=== PATIENT | male | born 1955 | race Caucasian/White ===

== ENCOUNTER → 2016-08-14 | Outpatient (CLI) | payer BC ==
[2016-08-14 07:39] LABS: CH 29.4; HCT 48.5 % (39.0-53.0); HDW 2.55; HGB 15.4 gm/dL (13.0-17.5); MCH 29.4 pg (25.0-35.0); MCHC 31.8 g/dL (31.0-37.0); MCV 92.2 fL (80.0-100.0); Mean Platelet Volume 7.8; RBC 5.26 m/uL (4.30-5.90); RDW 13.6 % (11.5-15.5); WBC 14.4 k/uL (3.8-10.6)
[2016-08-14 08:01] LABS: ALT 29 U/L (21-72); AST 22 U/L (17-59); Alkaline Phosphatase 89 U/L (38-126); Anion Gap 16 mmol/L; Blood Urea Nitrogen 25 mg/dL (9-20); Calcium 9.8 mg/dL (8.4-10.2); Carbon Dioxide 21 mmol/L (22-30); Chloride 105 mmol/L (98-107); Cholesterol 147 mg/dL (<200); Glucose 177 mg/dL (74-99); HDL Cholesterol 42 mg/dL (40-60); Non-African American GFR(MDRD) >60 (>60 ml/min/1.73 sqM); Potassium 5.1 mmol/L (3.5-5.1); Sodium 142 mmol/L (137-145); Total Bilirubin 0.6 mg/dL (0.2-1.3); Total Protein 7.8 g/dL (6.3-8.2); Triglycerides 234 mg/dL (<150)
[2016-08-14 08:31] LABS: Prostate Specific Antigen 0.52 ng/mL (0.00-4.00)
[2016-08-14 21:04] LABS: Hemoglobin A1C 6.7 % (4.2-6.1)
== END | disposition home or self-care (01) ==
LOC: LABWHC1 07:22
PROVIDERS: ATTEND Family Medicine
DX: Z00.00 Encounter for general adult medical examination without abnormal findings (principal); E11.9 Type 2 diabetes mellitus without complications; Z12.5 Encounter for screening for malignant neoplasm of prostate
CPT/HCPCS: 36415; 80053; 80061; 83036; 84153; 84439; 84443; 85027

== ENCOUNTER → 2018-09-15 | Outpatient (CLI) | payer BC ==
[2018-09-15 07:41] LABS: Basophils # (A) 0.1 k/uL (0-0.2); Basophils % (A) 1 %; Eosinophils # (A) 0.2 k/uL (0-0.7); Eosinophils % (A) 2 %; HCT 45.8 % (39.0-53.0); HGB 15.2 gm/dL (13.0-17.5); Lymphocytes # (A) 3.5 k/uL (1.0-4.8); Lymphocytes % (A) 37 %; MCH 29.4 pg (25.0-35.0); MCHC 33.1 g/dL (31.0-37.0); MCV 88.9 fL (80.0-100.0); Monocytes # (A) 0.5 k/uL (0-1.0); Monocytes % (A) 6 %; Neutrophils # (A) 4.9 k/uL (1.3-7.7); Neutrophils % (A) 52 %; Platelet Count 228 k/uL (150-450); RBC 5.15 m/uL (4.30-5.90); RDW 13.4 % (11.5-15.5); WBC 9.4 k/uL (3.8-10.6)
[2018-09-15 12:08] LABS: Albumin 4.6 g/dL (3.80-4.90); Albumin/Globulin Ratio 2.42 (1.60-3.17); Anion Gap 12.6 mmol/L (4.00-12.00); Calcium 9.4 mg/dL (8.7-10.3); Carbon Dioxide 23.4 mmol/L (21.6-31.8); Globulin 1.9 g/dL (1.6-3.3); LDL Cholesterol,Calculated 47.6 mg/dL (0.0-131.0); Potassium 4.9 mmol/L (3.5-5.5); Total Bilirubin 0.3 mg/dL (0.2-1.2); Total Protein 6.5 g/dL (6.2-8.2); VLDL Calculation 68.4 mg/dL (5.00-40.00)
[2018-09-15 12:15] LABS: T4, Free (Free Thyroxine) 1.2 ng/dL (0.80-1.80)
[2018-09-15 15:26] LABS: Hemoglobin A1C 7.9 % (4.0-6.0)
== END | disposition home or self-care (01) ==
LOC: LABWHC1 07:06
PROVIDERS: ATTEND Family Medicine
DX: Z00.00 Encounter for general adult medical examination without abnormal findings (principal); E11.9 Type 2 diabetes mellitus without complications; Z12.5 Encounter for screening for malignant neoplasm of prostate
CPT/HCPCS: 84439; 80061; 80053; 84443; 85025; 83036; 36415; G0103

== ENCOUNTER → 2019-02-24 | Outpatient (CLI) | payer BC ==
[2019-02-24 08:25] LABS: Basophils # (A) 0.1 k/uL (0-0.2); Basophils % (A) 1 %; Eosinophils # (A) 0.2 k/uL (0-0.7); Eosinophils % (A) 3 %; HCT 43.8 % (39.0-53.0); HGB 14.8 gm/dL (13.0-17.5); Lymphocytes # (A) 2.8 k/uL (1.0-4.8); Lymphocytes % (A) 35 %; MCH 29.7 pg (25.0-35.0); MCHC 33.8 g/dL (31.0-37.0); Mean Platelet Volume 6.9; Monocytes # (A) 0.4 k/uL (0-1.0); Monocytes % (A) 5 %; Neutrophils # (A) 4.3 k/uL (1.3-7.7); Neutrophils % (A) 54 %; Platelet Count 217 k/uL (150-450); RBC 4.97 m/uL (4.30-5.90); WBC 7.9 k/uL (3.8-10.6)
== END | disposition home or self-care (01) ==
LOC: LABPAT 08:08
PROVIDERS: ATTEND Surgery
DX: Z01.812 Encounter for preprocedural laboratory examination (principal); I65.22 Occlusion and stenosis of left carotid artery
CPT/HCPCS: 85025

== ENCOUNTER → 2019-02-24 | Outpatient (CLI) | payer BC ==
[2019-02-24 17:08] LABS: Albumin 4.4 g/dL (3.80-4.90); Albumin/Globulin Ratio 2.2 (1.60-3.17); Anion Gap 7.9 mmol/L (4.00-12.00); BUN/Creat Ratio 28.75 Ratio (12.00-20.00); Carbon Dioxide 24.1 mmol/L (21.6-31.8); Chol/HDL Ratio 5.72; LDL Cholesterol,Calculated 26.8 mg/dL (0.0-131.0); Potassium 4.6 mmol/L (3.5-5.5); Total Bilirubin 0.3 mg/dL (0.3-1.2); Total Protein 6.4 g/dL (6.2-8.2); VLDL Calculation 124.2 mg/dL (5.00-40.00)
[2019-02-24 21:03] LABS: Hemoglobin A1C 8.2 % (4.0-6.0)
== END | disposition home or self-care (01) ==
LOC: LABWHC1 08:10
PROVIDERS: ATTEND Family Medicine
DX: E78.5 Hyperlipidemia, unspecified (principal); E11.9 Type 2 diabetes mellitus without complications; I65.29 Occlusion and stenosis of unspecified carotid artery
CPT/HCPCS: 36415; 80053; 80061; 83036

== ENCOUNTER → 2019-02-28 | Outpatient (CLI) | payer BC ==
[2019-02-28 12:45] VITALS: BMI 32.5
== END | disposition home or self-care (01) ==
LOC: LABWHC1 17:00 → EDSTATUS 03-06 07:30
PROVIDERS: ATTEND Surgery
DX: I65.22 Occlusion and stenosis of left carotid artery (principal)
CPT/HCPCS: 86850; 86900; 86901

== ENCOUNTER → 2019-03-22 | Outpatient (CLI) | payer BC ==
[2019-03-22 17:31] LABS: African American GFR (CKD) >90 (>60 ml/min/1.73 sqM); Anion Gap 11 mmol/L; Blood Urea Nitrogen 28 mg/dL (9-20); Carbon Dioxide 22 mmol/L (22-30); Chloride 105 mmol/L (98-107); Potassium 4.5 mmol/L (3.5-5.1); Sodium 138 mmol/L (137-145)
[2019-03-22 17:34] LABS: Basophils # (A) 0.1 k/uL (0-0.2); Basophils % (A) 1 %; Eosinophils # (A) 0.2 k/uL (0-0.7); Eosinophils % (A) 2 %; HCT 42.2 % (39.0-53.0); HGB 14.4 gm/dL (13.0-17.5); Lymphocytes # (A) 3.6 k/uL (1.0-4.8); Lymphocytes % (A) 36 %; MCH 30.3 pg (25.0-35.0); MCHC 34.1 g/dL (31.0-37.0); MCV 88.8 fL (80.0-100.0); Monocytes # (A) 0.7 k/uL (0-1.0); Monocytes % (A) 7 %; Neutrophils # (A) 5.2 k/uL (1.3-7.7); Neutrophils % (A) 52 %; Platelet Count 236 k/uL (150-450); RBC 4.75 m/uL (4.30-5.90); RDW 12.8 % (11.5-15.5)
== END | disposition home or self-care (01) ==
LOC: LABPAT 16:13
PROVIDERS: ATTEND Surgery
DX: Z01.812 Encounter for preprocedural laboratory examination (principal); I65.22 Occlusion and stenosis of left carotid artery
CPT/HCPCS: 36415; 80051; 82565; 84520; 85025

== ENCOUNTER 2019-03-27 05:51 | Inpatient (IN) | payer BC ==
[2019-03-22 10:31] VITALS: BMI 32.1
[2019-03-27] MEDS ORDERED: SCOPOLAMINE 1.5MG/72HR PATCH TRANSDERM ONE (06:01)
[2019-03-27] MEDS ORDERED: HYDROmorphone 0.5 MG/0.5 ML SYRINGE IVP PRN (06:01)
[2019-03-27] MEDS ORDERED: MIDAZOLAM 2 MG/2 ML VIAL IV PRN (06:01)
[2019-03-27] MEDS ORDERED: DEXAMETHASONE SOD PHOSPHATE 10 MG/ML 1 ML VIAL IV ONE (06:01)
[2019-03-27] MEDS ORDERED: ONDANSETRON 4 MG/2 ML VIAL IVP ONE (06:01)
[2019-03-27] MEDS ORDERED: LIDOCAINE 1% 20 ML VIAL (10MG/ML) FOR IV START INTRADERMA PRN (06:01)
[2019-03-27 06:42] LABS: Glucose,Whole Blood 233 mg/dL (75-99)
[2019-03-27] MEDS: LACTATED RINGERS 1,000 ML IV SCH ×3 (06:51→21:19)
[2019-03-27] MEDS ORDERED: INSULIN ASPART (NovoLOG) 100 UNIT/ML VIAL SQ ONE (06:51)
[2019-03-27] MEDS ORDERED: MIDAZOLAM 2 MG/2 ML VIAL IV ONE (07:05)
[2019-03-27] MEDS ORDERED: NITROGLYCERIN-D5W PMX 50 MG/250 ML BOTTLE IV ONE (07:19)
[2019-03-27] MEDS ORDERED: PHENYLEPHRINE-0.9% NACL SYG 1 MG/10 ML SYRINGE ONE (07:19)
[2019-03-27] MEDS ORDERED: NEOSTIGMINE 1 MG/ML 10 ML VIAL ONE (07:19)
[2019-03-27] MEDS ORDERED: ROCURONIUM BROMIDE 10 MG/ML 10 ML VIAL IV ONE (07:19)
[2019-03-27] MEDS ORDERED: GLYCOPYRROLATE 0.2 MG/ML 2 ML VIAL ONE (07:19)
[2019-03-27] MEDS ORDERED: fentaNYL (PF) 50 MCG/ML 2 ML AMP ONE (07:19)
[2019-03-27] MEDS ORDERED: SUCCINYLCHOLINE CHLORIDE 100 MG/5 ML SYR IV ONE (07:19)
[2019-03-27] MEDS ORDERED: LIDOCAINE 1% INJ 10MG/ML (20 ML MDV) ONE (07:19)
[2019-03-27] MEDS ORDERED: HEPARIN SODIUM,PORCINE 10,000 UNIT/ML 1 ML VIAL ONE (07:19)
[2019-03-27] MEDS ORDERED: MIDAZOLAM 2 MG/2 ML VIAL ONE (07:19)
[2019-03-27] MEDS ORDERED: PROPOFOL 10 MG/ML 20 ML VIAL IV ONE (07:19)
[2019-03-27] MEDS ORDERED: LIDOCAINE 1% INJ 10MG/ML (20 ML MDV) SQ ONE (08:06)
[2019-03-27] MEDS ORDERED: TRIMETHOBENZAMIDE 100 MG/ML 2 ML VIAL IM PRN (09:29)
[2019-03-27] MEDS ORDERED: MORPHINE SULFATE 2 MG/ML SYRINGE IVP PRN (09:29)
[2019-03-27] MEDS ORDERED: BENZOCAINE/MENTHOL LOZENG 1 EACH LOZENGE MUCOUS MEM PRN (09:29)
[2019-03-27] MEDS ORDERED: HYDROcodone/APAP 5-325MG 1 EACH TAB PO PRN (09:29)
[2019-03-27] MEDS ORDERED: ACETAMINOPHEN TAB 325 MG TAB PO PRN (09:29)
[2019-03-27] MEDS ORDERED: MAG HYDROX/AL HYDROX/SIMETH 30 ML CUP PO PRN (09:29)
[2019-03-27] MEDS ORDERED: ALPRAZolam 0.5 MG TAB PO PRN (09:32)
[2019-03-27] MEDS ORDERED: LACTATED RINGERS 1,000 ML IV ONE ×2 (09:38→09:58)
[2019-03-27 11:20] LABS: Glucose,Whole Blood 211 mg/dL (75-99)
[2019-03-27 12:05] LABS: Glucose,Whole Blood 227 mg/dL (75-99)
[2019-03-27 12:51] LABS: Basophils % (A) 0 %; Eosinophils % (A) 0 %; HCT 41.2 % (39.0-53.0); Lymphocytes # (A) 1.1 k/uL (1.0-4.8); Lymphocytes % (A) 13 %; MCH 30.7 pg (25.0-35.0); MCV 90.2 fL (80.0-100.0); Mean Platelet Volume 5.9; Monocytes # (A) 0.2 k/uL (0-1.0); Monocytes % (A) 2 %; Neutrophils # (A) 6.7 k/uL (1.3-7.7); Neutrophils % (A) 84 %; Platelet Count 217 k/uL (150-450); RBC 4.56 m/uL (4.30-5.90); RDW 12.7 % (11.5-15.5)
--- NOTE | 2019-03-27 15:24 | P.CNPUL ---
History of Present Illness Consult date: 03/27/19 Requesting physician: Nathan Engel Reason for consult: other Chief complaint: Left carotid stenosis History of present illness: This is a 64-year-old white male patient past medical history of hypertension, hyperlipidemia, diabetes mellitus type II, osteoarthritis. Patient was seen for right-sided neck pain and tingling to the right jaw and his outpatient workup demonstrated severe stenosis of his left internal carotid artery. Patient underwent MRA which demonstrated greater than 90% stenosis of his left internal carotid artery and he was referred to vascular surgery for surgical inte rvention. On 03/27/2019 patient underwent left-sided endarterectomy with Dr. Engel. We are seeing him in the postoperative period in the intensive care unit, he is awake and alert, oriented 3, he is doing very well, hemodynamically stable, he is in sinus rhythm on the monitor, vital signs are stable, is currently on room air, with a pulse ox of 97%, he denies history of lung disease, does have history of smoking, was currently in remission, left-sided neck incision is clean dry and intact, covered with surgical dressing, trachea is midline, no evidence of hematoma, YESSENIA drain is with small amount of sanguinous output, no difficulty breathing, no chest pain, and we were consulted for criti shalonda care management. Review of Systems All systems: negative Constitutional: Denies chills, Denies fever Eyes: denies blurred vision, denies pain Ears, nose, mouth and throat: Denies headache, Denies sore throat Cardiovascular: Denies chest pain, Denies shortness of breath Respiratory: Denies cough Gastrointestinal: Denies abdominal pain, Denies diarrhea, Denies nausea, Denies vomiting Musculoskeletal: Denies myalgias Integumentary: Denies pruritus, Denies rash Neurological: Denies numbness, Denies weakness Psychiatric: Denies anxiety, Denies depression Endocrine: Denies fatigue, Denies weight change Past Medical History Past Medical History: Diabetes Mellitus, Hyperlipidemia, Hypertension, Osteoarthritis (OA) Additional Past Medical History / Comment(s): UPPER AND LOWER DENTURES. GLASSES. History of Any Multi-Drug Resistant Organisms: None Reported Past Surgical History: Orthopedic Surgery Additional Past Surgical History / Comment(s): COLONOSCOPY, left hip replacement, left hip revision. RT EYE SX FOR "CYST" Past Anesthesia/Blood Transfusion Reactions: No Reported Reaction Past Psychological History: Anxiety, Depression Smoking Status: Former smoker Past Alcohol Use History: None Reported Additional Past Alcohol Use History / Comment(s): quit smoking 02/15, smoked less than 1ppd Past Drug Use History: None Reported - Past Family History Mother Family Medical History: Cancer Medications and Allergies Home Medications Medication Instructions Recorded Confirmed Type Ramipril [Altace] 5 mg PO QAM 10/01/13 03/22/19 History Rosuvastatin [Crestor] 20 mg PO HS 10/01/13 03/22/19 History metFORMIN HCL 1,000 mg PO AC-BID 10/01/13 03/22/19 History Nebivolol HCl [Bystolic] 10 mg PO QAM 10/07/14 03/22/19 History Glimepiride [Amaryl] 4 mg PO DAILY 10/08/14 03/22/19 History DULoxetine HCL [Cymbalta] 60 mg PO W/SUPPER 09/01/15 03/22/19 History Ibuprofen [Motrin] 800 mg PO Q8HR PRN #20 tab 09/01/15 03/22/19 Rx ALPRAZolam [Xanax] 0.5 mg PO BID PRN 02/28/19 03/22/19 History Allergies Allergy/AdvReac Type Severity Reaction Status Date / Time No Known Allergies Allergy Verified 03/22/19 10:26 Physical Exam Vitals: Vital Signs Temp Pulse Pulse Pulse Resp BP BP 03/27/19 14:00 86 17 114/56 03/27/19 13:30 84 18 03/27/19 13:00 78 11 L 120/62 03/27/19 12:30 86 19 03/27/19 12:00 98.2 F 70 21 03/27/19 11:30 71 12 119/64 03/27/19 11:28 98.2 F 77 17 119/64 03/27/19 11:15 77 16 03/27/19 10:46 73 18 126/65 03/27/19 10:30 68 18 126/65 03/27/19 10:15 71 18 123/58 03/27/19 10:00 97.3 F L 74 16 121/58 03/27/19 06:26 97.5 F L 78 20 147/67 BP BP Pulse Ox 03/27/19 14:00 97 03/27/19 13:30 97 03/27/19 13:00 97 03/27/19 12:30 97 03/27/19 12:00 97 03/27/19 11:30 97 03/27/19 11:28 121/53 97 03/27/19 11:15 03/27/19 10:46 134/56 96 03/27/19 10:30 142/56 95 03/27/19 10:15 136/56 97 03/27/19 10:00 132/59 98 03/27/19 06:26 151/65 97 Intake and Output 03/27/19 03/27/19 03/27/19 06:59 14:59 22:59 Intake Total 300 2200 Output Total 735 Balance 300 1465 Intake: IV 300 2200 Lactated Ringers 1,000 ml 300 @ 100 mls/hr IV .Q10H [facility] Rx#:[id number] Output: Urine 720 Estimated Blood Loss 15 Other: Voiding Method Indwelling Catheter Weight 102.1 kg ABP, PAP, CO, CI - Last 8 Hours Arterial Blood Pressure 109/58 Arterial Blood Pressure 119/57 Arterial Blood Pressure 121/52 Arterial Blood Pressure 125/65 Arterial Blood Pressure 120/54 Arterial Blood Pressure 116/52 GENERAL EXAM: Alert, pleasant, 64-year-old white male, comfortable in no apparent distress. HEAD: Normocephalic/atraumatic. EYES: Normal reaction of pupils, equal size. Conjunctiva pink, sclera white. NOSE: Clear with pink turbinates. THROAT: No erythema or exudates. NECK: No masses, no JVD, no thyroid enlargement, no adenopathy. Left neck incision is clean dry and intact, covered with surgical dressing, trachea is midline, with no deviation, YESSENIA drain is compressed, and draining small amount of stimulus output CHEST: No chest wall deformity. Symmetrical expansion. LUNGS: Equal air entry with no crackles, wheeze, rhonchi or dullness. CVS: Regular rate and rhythm, normal S1 and S2, no gallops, no murmurs, no rubs ABDOMEN: Soft, nontender. No hepatosplenomegaly, normal bowel sounds, no guarding or rigidity. EXTREMITIES: No clubbing, no edema, no cyanosis, 2+ pulses and upper and lower extremities. MUSCULOSKELETAL: Muscle strength and tone normal. SPINE: No scoliosis or deformity SKIN: No rashes CENTRAL NERVOUS SYSTEM: Alert and oriented -3. No focal deficits, tone is normal in all 4 extremities. PSYCHIATRIC: Alert and oriented -3. Appropriate affect. Intact judgment and insight. Results - Laboratory Findings CBC and BMP: 03/27/19 12:25 Abnormal lab findings: Abnormal Labs 03/27/19 03/27/19 03/27/19 06:37 11:18 12:03 POC Glucose (mg/dL) 233 H 211 H 227 H - Diagnostic Findings Chest x-ray: report reviewed, image reviewed Assessment and Plan Plan: Assessment: #1. High-grade stenosis of the left internal carotid artery, is post left endarterectomy postoperative day 0. MRA showed 90% stenosis of the left internal carotid artery #2. Hypertension #3. Hyperlipidemia #4. Diabetes type II #5. Anxiety #6. Osteoarthritis #7. History of smoking, in remission Plan: Continue current medical treatment, hemodynamic patient is stable, doing very well in the postoperative period, no neurologic changes, neck incision's clean dry and intact, no difficulty breathing, no chest pain. Having some mild throat soreness, but no acute distress, continues on lactated Ringer's at a rate of 100 ML per hour, his home meds have been reordered by vascular surgery. Continue monitoring his blood sugars, vital signs and output. He will remain in the intensive care unit overnight. GI and DVT prophylaxis. I performed a history & physical examination of the patient and discussed their management with my nurse practitioner, Yazmin Morrell. I reviewed the nurse practitioner's note and agree with the documented findings and plan of care. Lung sounds are positive for clear breath sounds throughout the lung au. The findings and the impression was discussed with the patient. I attest to the documentation by the nurse practitioner. Time with Patient: Greater than 30
[2019-03-27] MEDS: metFORMIN 500 MG TAB PO SCH (17:02)
[2019-03-27] MEDS: HEPARIN SODIUM,PORCINE 5,000 UNIT/ML 1 ML VIAL SQ SCH (17:03)
[2019-03-27] MEDS ORDERED: DULoxetine HCL 60 MG CAPSULE.DR PO SCH (17:30)
[2019-03-27 20:23] LABS: Glucose,Whole Blood 265 mg/dL (75-99)
[2019-03-27] MEDS ORDERED: ATORVASTATIN 40 MG TAB PO SCH (21:00)
[2019-03-27] MEDS: INSULIN ASPART (NovoLOG) 100 UNIT/ML VIAL SQ SCH (21:18)
[2019-03-28] MEDS: HEPARIN SODIUM,PORCINE 5,000 UNIT/ML 1 ML VIAL SQ SCH ×2 (00:42→08:24)
[2019-03-28 04:42] LABS: HCT 37.3 % (39.0-53.0); HGB 12.6 gm/dL (13.0-17.5); MCH 29.9 pg (25.0-35.0); MCHC 33.9 g/dL (31.0-37.0); MCV 88.3 fL (80.0-100.0); Mean Platelet Volume 6.6; Platelet Count 212 k/uL (150-450); RBC 4.22 m/uL (4.30-5.90); RDW 12.8 % (11.5-15.5); WBC 12.9 k/uL (3.8-10.6)
[2019-03-28 06:45] LABS: Glucose,Whole Blood 192 mg/dL (75-99)
[2019-03-28] MEDS: LACTATED RINGERS 1,000 ML IV SCH ×2 (06:48→06:57)
[2019-03-28] MEDS: metFORMIN 500 MG TAB PO SCH (06:52)
[2019-03-28] MEDS: INSULIN ASPART (NovoLOG) 100 UNIT/ML VIAL SQ SCH (06:53)
--- NOTE | 2019-03-28 08:04 | P.DS ---
Providers Date of admission: 03/27/19 05:51 Attending physician: Nathan Engel DO Consults: 03/27/19 09:29 Consult Physician Routine Consulting Provider: Moshe Hunt Consult Reason/Comments: medical management Do you want consulting provider notified?: Yes 03/27/19 09:34 Consult Physician Routine Consulting Provider: Reese Hendrix Reason/Comments: icu care Do you want consulting provider notified?: Yes Primary care physician: Moshe Hunt [facility] Course: Patient seen and examined. Overall doing quite well after his left carotid endarterectomy on 03/27/2019. He denies any pain. He is neurologically intact. His Han catheter and art line have been removed. He has urinated since without issue. He tolerated his breakfast without concerned. His drain put out minimal serosanguineous fluid and was removed. Incision is clean, dry, intact without any evidence of hematoma. At this time is found to be in satisfactory condition for discharge home. He will be maintained on aspirin and statin and given a prescription for Plavix. Discharge instructions are given to the patient and he seemingly understands Plan - Discharge Summary Discharge Rx Participant: No New Discharge Prescriptions: New Clopidogrel [Plavix] 75 mg PO DAILY #30 tablet No Action Rosuvastatin [Crestor] 20 mg PO HS metFORMIN HCL 1,000 mg PO AC-BID Ramipril [Altace] 5 mg PO QAM Nebivolol HCl [Bystolic] 10 mg PO QAM Glimepiride [Amaryl] 4 mg PO DAILY DULoxetine HCL [Cymbalta] 60 mg PO W/SUPPER Ibuprofen [Motrin] 800 mg PO Q8HR PRN #20 tab PRN Reason: Pain ALPRAZolam [Xanax] 0.5 mg PO BID PRN PRN Reason: Anxiety Discharge Medication List Ramipril [Altace] 5 mg PO QAM 10/01/13 [History] Rosuvastatin [Crestor] 20 mg PO HS 10/01/13 [History] metFORMIN HCL 1,000 mg PO AC-BID 10/01/13 [History] Nebivolol HCl [Bystolic] 10 mg PO QAM 10/07/14 [History] Glimepiride [Amaryl] 4 mg PO DAILY 10/08/14 [History] DULoxetine HCL [Cymbalta] 60 mg PO W/SUPPER 09/01/15 [History] Ibuprofen [Motrin] 800 mg PO Q8HR PRN #20 tab 09/01/15 [Rx] ALPRAZolam [Xanax] 0.5 mg PO BID PRN 02/28/19 [History] Clopidogrel [Plavix] 75 mg PO DAILY #30 tablet 03/28/19 [Rx] Follow up Appointment(s)/Referral(s): Moshe Hunt DO [Primary Care Provider] - 1 Week Nathan Engel DO [STAFF PHYSICIAN] - 10 Days Activity/Diet/Wound Care/Special Instructions: May shower starting tomorrow. No soaking of the incision. Resume home medications. Resume home diet as tolerated. Resume regular activity. Discharge Disposition: HOME SELF-CARE
[2019-03-28 08:33] VITALS: TEMP 97.8
[2019-03-28] MEDS ORDERED: LISINOPRIL 20 MG TAB PO SCH (09:00)
[2019-03-28] MEDS ORDERED: CLOPIDOGREL 75 MG TAB PO SCH (09:00)
[2019-03-28] MEDS ORDERED: NEBIVOLOL 5 MG TAB PO SCH (09:00)
[2019-03-28] MEDS ORDERED: GLIMEPIRIDE 4 MG TAB PO SCH (09:00)
--- NOTE | 2019-03-28 09:33 | P.PN ---
Subjective Progress Note Date: 03/28/19 Principal diagnosis: Left carotid stenosis This is a 64-year-old white male patient past medical history of hypertension, hyperlipidemia, diabetes mellitus type II, osteoarthritis. Patient was seen for right-sided neck pain and tingling to the right jaw and his outpatient workup demonstrated severe stenosis of his left internal carotid artery. Patient underwent MRA which demonstrated greater than 90% stenosis of his left internal carotid artery and he was referred to vascular surgery for surgical intervention. On 03/27/2019 patient underwent left-sided endarterectomy with Dr. Engel. We are seeing him in the postoperative period in the intensive care unit, he is awake and alert, oriented 3, he is doing very well, hemodynamically stable, he is in sinus rhythm on the monitor, vital signs are stable, is currently on room air, with a pulse ox of 97%, he denies history of lung disease, does have history of smoking, was currently in remission, left- sided neck incision is clean dry and intact, covered with surgical dressing, trachea is midline, no evidence of hematoma, YESSENIA drain is with small amount of sanguinous output, no difficulty breathing, no chest pain, and we were consulted for critical care management. On 03/28/2019 patient seen in follow-up in intensive care unit, he is awake and alert, oriented 3, no acute issues overnight. No neurologic deficits, left neck incision is clean dry and intact, soft, trachea midline, YESSENIA drain has been discontinued. Patient denies any complaints, no shortness of breath, no chest pain, sinus rhythm on the monitor, vital signs are stable, room air pulse ox is 94%, lung sounds are clear. Morning's lab work has been reviewed, showing white blood cell count of 12.9, hemoglobin of 12.6. Blood sugars at elevated last night, at 265, and 192 this morning, patient was covered with the sliding scale NovoLog. His home dose of metformin was reordered yesterday. Otherwise he is doing very well, and he is being discharged home today. Objective - Vital Signs Vital signs: Vital Signs Temp 97.8 F 03/28/19 08:00 Pulse 77 03/28/19 08:00 Resp 18 03/28/19 08:00 BP 134/61 03/28/19 08:00 Pulse Ox 94 L 03/28/19 08:00 Intake & Output 10/03/28/19 03/28/19 18:59 06:59 18:59 Intake Total 3080 1300 200 Output Total 1535 1450 Balance 1545 -150 200 Weight 103.5 kg Intake: IV 2600 1300 200 Lactated Ringers 1,000 ml 700 1300 200 @ 100 mls/hr IV .Q10H [facility] Rx#:[id number] Oral 480 Output: Urine 1520 1450 Estimated Blood Loss 15 Other: Voiding Method Indwelling Catheter Indwelling Catheter Urinal ABP, PAP, CO, CI - Last Documented Arterial Blood Pressure 150/86 - Exam GENERAL EXAM: Alert, pleasant, 64-year-old white male, comfortable in no apparent distress. HEAD: Normocephalic/atraumatic. EYES: Normal reaction of pupils, equal size. Conjunctiva pink, sclera white. NOSE: Clear with pink turbinates. THROAT: No erythema or exudates. NECK: No masses, no JVD, no thyroid enlargement, no adenopathy. Left neck incision is clean dry and intact, covered with surgical dressing, trachea is midline, with no deviation. CHEST: No chest wall deformity. Symmetrical expansion. LUNGS: Equal air entry with no crackles, wheeze, rhonchi or dullness. CVS: Regular rate and rhythm, normal S1 and S2, no gallops, no murmurs, no rubs ABDOMEN: Soft, nontender. No hepatosplenomegaly, normal bowel sounds, no guarding or rigidity. EXTREMITIES: No clubbing, no edema, no cyanosis, 2+ pulses and upper and lower extremities. MUSCULOSKELETAL: Muscle strength and tone normal. SPINE: No scoliosis or deformity SKIN: No rashes CENTRAL NERVOUS SYSTEM: Alert and oriented -3. No focal deficits, tone is normal in all 4 extremities. PSYCHIATRIC: Alert and oriented -3. Appropriate affect. Intact judgment and insight. - Labs CBC & Chem 7: 03/28/19 04:22 Labs: Abnormal Lab Results - Last 24 Hours (Table) 03/27/19 03/27/19 03/27/19 Range/Units 11:18 12:03 20:21 WBC (3.8-10.6) k/uL RBC (4.30-5.90) m/uL Hgb (13.0-17.5) gm/dL Hct (39.0-53.0) % POC Glucose (mg/dL) 211 H 227 H 265 H (75-99) mg/dL 03/28/19 03/28/19 Range/Units 04:22 06:43 WBC 12.9 H (3.8-10.6) k/uL RBC 4.22 L (4.30-5.90) m/uL Hgb 12.6 L (13.0-17.5) gm/dL Hct 37.3 L (39.0-53.0) % POC Glucose (mg/dL) 192 H (75-99) mg/dL Assessment and Plan Plan: Assessment: #1. High-grade stenosis of the left internal carotid artery, is post left endarterectomy postoperative day 0. MRA showed 90% stenosis of the left internal carotid artery #2. Hypertension #3. Hyperlipidemia #4. Diabetes type II #5. Anxiety #6. Osteoarthritis #7. History of smoking, in remission Plan: Patient is doing well, hemodynamically stable, neurologically intact, left neck incision is clean dry and intact, no signs of hematoma, YESSENIA drain has been discontinued, no acute issues overnight, no specific complaints, increase activity as tolerated, and patient is anticipated to be discharged home today. I performed a history & physical examination of the patient and discussed their management with my nurse practitioner, Yazmin Morrell. I reviewed the nurse practitioner's note and agree with the documented findings and plan of care. Lung sounds are positive for clear breath sounds throughout the lung au. The findings and the impression was discussed with the patient. I attest to the documentation by the nurse practitioner. Time with Patient: Less than 30
[2019-03-28 09:37] VITALS: BP 120/54; PULSE 74; RESP 22
--- NOTE | 2019-03-29 15:22 | P.CONS ---
History of Present Illness - Reason for Consult Consult date: 03/28/19 Medical management diabetes mellitus, hypertension, hyperlipidemia, osteoar Requesting physician: Nathan Engel - Chief Complaint Severe left carotid stenosis - History of Present Illness This is 64-year-old gentleman with medical history of diabetes mellitus, hyperlipidemia, hypertension, osteoarthritis, anxiety, depression, former nicotine dependence, status post Left carotid endarterectomy secondary to reported 90% stenosis of the left internal carotid artery per MRA. Tolerated procedure well, hemodynamically stable, neurologically intact. Prior to admission patient reported some significant sinus congestion with cough and was taking Robitussin frequently, hence elevated blood sugars on admission. Sliding scale initiated in addition to his home med regime ,improving. Minimal serosanguineous drainage in YESSENIA, discontinued. Vital signs stable. Telemetry si nus rhythm, VSS, alert and oriented 3. Denies chest pain, palpitations or shortness of breath. Denies lightheadedness, dizziness or focal deficits. WBC 12.9, hemoglobin 12.6. Review of Systems ROS Statement: Those systems with pertinent positive or pertinent negative responses have been documented in the HPI. ROS Other: All systems not noted in ROS Statement are negative. Past Medical History Past Medical History: Diabetes Mellitus, Hyperlipidemia, Hypertension, Osteoarthritis (OA) Additional Past Medical History / Comment(s): UPPER AND LOWER DENTURES. GLASSES. History of Any Multi-Drug Resistant Organisms: None Reported Past Surgical History: Orthopedic Surgery Additional Past Surgical History / Comment(s): COLONOSCOPY, left hip replacement, left hip revision. RT EYE SX FOR "CYST" Past Anesthesia/Blood Transfusion Reactions: No Reported Reaction Past Psychological History: Anxiety, Depression Smoking Status: Former smoker Past Alcohol Use History: None Reported Additional Past Alcohol Use History / Comment(s): quit smoking 02/15, smoked less than 1ppd Past Drug Use History: None Reported - Past Family History Mother Family Medical History: Cancer Medications and Allergies Home Medications Medication Instructions Recorded Confirmed Type Ramipril [Altace] 5 mg PO QAM 10/01/13 03/22/19 History Rosuvastatin [Crestor] 20 mg PO HS 10/01/13 03/22/19 History metFORMIN HCL 1,000 mg PO AC-BID 10/01/13 03/22/19 History Nebivolol HCl [Bystolic] 10 mg PO QAM 10/07/14 03/22/19 History Glimepiride [Amaryl] 4 mg PO DAILY 10/08/14 03/22/19 History DULoxetine HCL [Cymbalta] 60 mg PO W/SUPPER 09/01/15 03/22/19 History ALPRAZolam [Xanax] 0.5 mg PO BID PRN 02/28/19 03/22/19 History Clopidogrel [Plavix] 75 mg PO DAILY #30 tablet 03/28/19 Rx Allergies Allergy/AdvReac Type Severity Reaction Status Date / Time No Known Allergies Allergy Verified 03/22/19 10:26 Physical Exam Vitals: Vital Signs Temp Pulse Pulse Resp BP BP BP 03/28/19 07:30 75 16 134/61 03/28/19 07:00 77 16 122/58 03/28/19 06:30 68 18 122/58 03/28/19 06:00 71 19 129/66 03/28/19 05:30 69 38 H 129/66 03/28/19 05:00 78 30 H 135/79 03/28/19 04:30 74 20 03/28/19 04:00 98.4 F 72 17 135/79 03/28/19 03:30 77 20 124/69 03/28/19 03:00 81 14 113/56 03/28/19 02:30 86 13 113/56 03/28/19 02:00 76 18 133/58 03/28/19 01:30 79 20 133/58 03/28/19 01:00 83 18 03/28/19 00:30 80 22 138/62 03/28/19 00:00 97.7 F 79 19 135/63 03/27/19 23:35 80 20 03/27/19 23:30 82 22 135/63 03/27/19 23:00 82 21 127/67 03/27/19 22:30 82 15 03/27/19 22:00 84 22 03/27/19 21:30 86 14 122/65 03/27/19 21:00 82 22 03/27/19 20:30 82 21 129/68 03/27/19 20:00 98.4 F 81 20 03/27/19 19:30 85 21 124/68 03/27/19 19:00 84 21 134/63 03/27/19 18:30 92 22 03/27/19 18:00 89 26 H 120/62 03/27/19 17:30 85 14 134/77 03/27/19 17:00 84 12 122/60 03/27/19 16:30 81 20 03/27/19 16:00 98.2 F 81 24 123/65 03/27/19 15:30 79 19 03/27/19 15:00 76 21 119/58 03/27/19 14:30 80 19 03/27/19 14:00 86 17 114/56 03/27/19 13:30 84 18 03/27/19 13:00 78 11 L 120/62 03/27/19 12:30 86 19 03/27/19 12:00 98.2 F 70 21 03/27/19 11:30 71 12 119/64 03/27/19 11:28 98.2 F 77 17 119/64 03/27/19 11:15 77 16 03/27/19 10:46 73 18 126/65 134/56 03/27/19 10:30 68 18 126/65 142/56 03/27/19 10:15 71 18 123/58 136/56 03/27/19 10:00 97.3 F L 74 16 121/58 132/59 BP Pulse Ox 03/28/19 07:30 95 03/28/19 07:00 95 03/28/19 06:30 93 L 03/28/19 06:00 96 03/28/19 05:30 94 L 03/28/19 05:00 93 L 03/28/19 04:30 93 L 03/28/19 04:00 95 03/28/19 03:30 94 L 03/28/19 03:00 87 L 03/28/19 02:30 94 L 03/28/19 02:00 97 03/28/19 01:30 95 03/28/19 01:00 97 03/28/19 00:30 96 03/28/19 00:00 95 03/27/19 23:35 95 03/27/19 23:30 95 03/27/19 23:00 96 03/27/19 22:30 95 03/27/19 22:00 95 03/27/19 21:30 96 03/27/19 21:00 94 L 03/27/19 20:30 95 03/27/19 20:00 95 03/27/19 19:30 95 03/27/19 19:00 95 03/27/19 18:30 94 L 03/27/19 18:00 96 03/27/19 17:30 95 03/27/19 17:00 96 03/27/19 16:30 96 03/27/19 16:00 96 03/27/19 15:30 96 03/27/19 15:00 97 03/27/19 14:30 97 03/27/19 14:00 97 03/27/19 13:30 97 03/27/19 13:00 97 03/27/19 12:30 97 03/27/19 12:00 97 03/27/19 11:30 97 03/27/19 11:28 121/53 97 03/27/19 11:15 03/27/19 10:46 96 03/27/19 10:30 95 03/27/19 10:15 97 03/27/19 10:00 98 Intake and Output 03/27/19 03/28/19 03/28/19 22:59 06:59 14:59 Intake Total 1280 900 100 Output Total 1125 1125 Balance 155 -225 100 Intake: IV 800 900 100 Lactated Ringers 1,000 ml 800 900 100 @ 100 mls/hr IV .Q10H [facility] Rx#:[id number] Oral 480 Output: Urine 1125 1125 Other: Voiding Method Indwelling Catheter Indwelling Catheter Weight 103.5 kg ABP, PAP, CO, CI - Last 8 Hours Arterial Blood Pressure 150/86 Arterial Blood Pressure 134/86 Arterial Blood Pressure 109/70 Arterial Blood Pressure 107/52 Arterial Blood Pressure 125/51 Arterial Blood Pressure 121/55 PHYSICAL EXAM: VITAL SIGNS: As above GENERAL: Sitting up in chair, no acute distress HEENT: Conjunctivae normal. eyes normal. Oral mucosa moist. Trachea midline, no deviation. NECK: No JVD. No thyroid enlargement. No LNs. Left neck dressing, clean dry and intact CARDIOVASCULAR: S1, S2 regular.. No murmur RESPIRATION: Breath sounds diminished in the bases. No rhonchi or crackles. No bronchial breathing. ABDOMEN: Soft, nontender . No guarding. no masses palpable. No ascites, No hepatosplenomegaly.Bowel sounds heard. EXTREMITIES: No edema. no swelling. No cyanosis, no clubbing, positive pulses in all extremities PSYCHIATRY: Alert and oriented X3, mood and affect normal. NERVOUS SYSTEM: Cranial N 2-12 grossly normal. Moves all 4 limbs. No focal deficits. Strength and sensation grossly intact.. Skin: no lesions, no rash Results CBC & Chem 7: 03/28/19 04:22 Labs: Abnormal Lab Results - Last 24 Hours (Table) 03/27/19 03/27/19 03/27/19 Range/Units 11:18 12:03 20:21 WBC (3.8-10.6) k/uL RBC (4.30-5.90) m/uL Hgb (13.0-17.5) gm/dL Hct (39.0-53.0) % POC Glucose (mg/dL) 211 H 227 H 265 H (75-99) mg/dL 03/28/19 03/28/19 Range/Units 04:22 06:43 WBC 12.9 H (3.8-10.6) k/uL RBC 4.22 L (4.30-5.90) m/uL Hgb 12.6 L (13.0-17.5) gm/dL Hct 37.3 L (39.0-53.0) % POC Glucose (mg/dL) 192 H (75-99) mg/dL Assessment and Plan Assessment: -Severe stenosis Left internal carotid artery, 90% per MRA, status post carotid endarterectomy -Diabetes mellitus -Hypertension -Hyperlipidemia-osteoarthritis -Anxiety-depression -former nicotine dependence Plan: Continue current medication regime ,monitoring and symptomatic treatment. Home meds have been reviewed and resumed accordingly, follow-up with PCP in one week. Patient is being discharged home today by vascular surgery. Thank you Dr. Engel for this consult. The impression and plan of care has been dictated as directed. : I performed a history and examination of this patient, discussed the same with the dictator. I agree with the dictator's note ,documented as a scribe. Any a dditional findings or plans will be noted.
--- NOTE | 2019-04-03 13:07 | P.OP ---
Description of Procedure: Date of Procedure: 03/27/2019 Preoperative Diagnosis: Left Internal carotid artery stenosis Postoperative Diagnosis: Same Procedure(s) Performed: Left carotid endarterectomy with patch angioplasty Anesthesia: STEVE Surgeon: Nathan Engel Estimated Blood Loss (ml): 30 Pathology: Carotid plaque Condition: stable Disposition: PACU Indications for Procedure: 62-year-old gentleman presents to the operating room for left carotid endarterectomy secondary to significant carotid stenosis greater than 70%. Description of Procedure: After written informed consent was obtained the patient all risks benefits and competitions were described the patient is brought to the operative suite and laid in a supine position. The area of the neck was prepped and draped in usual sterile fashion after appropriate anesthetic was performed per the anesthesiologist. A timeout was performed in normal fashion antibiotics were administered prior to incision. An oblique incision was then created just anterior to the sternocleidomastoid musculature with a 10 blade scalpel and dissection was carried down to the carotid sheath. The carotid sheath was then entered after facial vein was located and suture ligated in normal fashion. The common carotid, internal carotid, external carotid and superior thyroid arteries were located and dissected free in a meticulous fashion circumferentially and controlled with vessel loops. Attention was then placed to locating the vagus nerve as well as hypoglossal nerve which were both spared. Once controlled patient was administered heparin and followed with ACTs for appropriate heparinization. Once ACT was above 200 the proximal and distal aspects of the dissection were then controlled with vascular clamps. Arteriotomy was then created with 11 blade scalpel and extended with Aldrich Toledo scissors. Utilizing pressure tubing stump pressures were obtained and were 80. No shunt was required and en darterectomy was then performed with a [place] and elevator. The plaque was then feathered at the distal aspect and the internal carotid artery and removed. The area was copiously irrigated with heparinized saline and all free debris was removed. A 7-0 Prolene suture was then placed to tack the distal aspect of the dissection at the internal carotid artery. A 0.8 x 8 cm bovine pericardial patch was then chosen and patch angioplasty was performed with 6-0 Prolene suture in a running fashion. Prior to last sutures being placed the inflow was released flushing any free debris out of the patch. This was reclamped and the internal carotid artery was released revealing good brisk flow and was once again reclamped. The external carotid and superior thyroid artery were then released followed by the common carotid artery to allow any free debris to be flushed into the external system. Final sutures were placed and secured. Internal carotid artery control was then released. Good pulsatile flow was noted through the patch and a Doppler was utilized demonstrating good brisk flow into the internal, external carotid arteries without any signs of obstruction. Hemostasis was then assured with Surgicel. A 10-Italian YESSENIA drain was then placed in normal fashion and secured with 3-0 nylon suture. The incision was then closed in a multilayer fashion after hemostasis was assured. The skin was then cleansed and dressings were placed. Patient tolerated the procedure well and was following commands and moving all extremities. Patient was then sent to PACU for recovery.
--- NOTE | 2019-04-05 09:28 | CDI ---
Documentation Clarification Form Date: 04/05/2019 9:13:00 AM From: Kristie Patel Phone: ? If you have a question about this query, please contact Luna Vicente, [employer] at [phone] between 8am and 5pm. Admit Date: 03/27/2019 5:51:00 AM Patient Name: Bird Toledo Visit Number: [id number] Discharge Date: 03/28/2019 10:47:00 AM ATTENTION: The Clinical Documentation Specialists (CDI) and [facility] Coding Staff appreciate your assistance in clarifying documentation. Please respond to the clarification below the line at the bottom and electronically sign. The CDI & [facility] Coding staff will review the response and follow-up if needed. Please note: Queries are made part of the Legal Health Record. If you have any questions, please contact the author of this message via ITS. Dr. Priya Han The patient has diabetes, as indicated throughout chart. Prior to admission patient was taking Robitussin frequently, "hence elevated blood sugars on admission." Please clarify if patient had DM with hyperglycemia and if so, was it due to Robitussin. History/Risk Factors: Carotid stenosis, carotid endarterectomy DM, patient taking Robitussin for prior significant sinus congestion. Clinical Indicators: Glucose: 233, 211, 227, 265 Treatment: Sliding scale initiated to his home regime In order to capture the severity of Illness and necessary documentation specificity, please clarify: DM Type 2 DM Type 2 with hyperglycemia Drug/chemical induced hyperglycemia (Robitussin) with DM 2 Other, please specify Unable to Determine I only saw pt day of and regarding DC, please ask Toro OZUNA
--- NOTE | 2019-04-10 05:28 | CDI ---
DM Type 2 with hyperglycemia Documentation Clarification Form Date: 04/05/2019 9:13:00 AM From: Kristie Patel Phone: If you have a question about this query, please contact Luna Vicente Manager Asset Management at [phone] between 8am and 5pm. Admit Date: 03/27/2019 5:51:00 AM Patient Name: Bird Toledo Visit Number: [id number] Discharge Date: 03/28/2019 10:47:00 AM ATTENTION: The Clinical Documentation Specialists (CDI) and [facility] Coding Staff appreciate your assistance in clarifying documentation. Please respond to the clarification below the line at the bottom and electronically sign. The CDI & [facility] Coding staff will review the response and follow-up if needed. Please note: Queries are made part of the Legal Health Record. If you have any questions, please contact the author of this message via ITS. Dr. Nathan Engel The patient has diabetes, as indicated throughout chart. Prior to admission patient was taking Robitussin frequently, "hence elevated blood sugars on admission." Please clarify if patient had DM with hyperglycemia and if so, was it due to Robitussin. History/Risk Factors: Carotid stenosis, carotid endarterectomy DM, patient taking Robitussin for prior significant sinus congestion. Clinical Indicators: Glucose: 233, 211, 227, 265 Treatment: Sliding scale initiated to his home regime In order to capture the severity of Illness and necessary documentation specificity, please clarify: DM Type 2 DM Type 2 with hyperglycemia Drug/chemical induced hyperglycemia with DM 2 Other, please specify Unable to Determine MTDD
== END 2019-03-28 10:47 | disposition home or self-care (01) | DRG 39 ==
LOC: 2ORMAIN 05:51 → 2SICU 10:00
PROVIDERS: ADMIT Surgery; ATTEND Surgery
PROC: 03UL0KZ Supplement Left Internal Carotid Artery with Nonautologous Tissue Substitute, Open Approach (ICD-10-PCS; 2019-03-27)
PROC: 03CL0ZZ Extirpation of Matter from Left Internal Carotid Artery, Open Approach (ICD-10-PCS; principal; 2019-03-27 07:30)
DX: I65.22 Occlusion and stenosis of left carotid artery (principal); E78.5 Hyperlipidemia, unspecified; F32.9 Major depressive disorder, single episode, unspecified; F41.9 Anxiety disorder, unspecified; I10 Essential (primary) hypertension; M19.90 Unspecified osteoarthritis, unspecified site; Z79.02 Long term (current) use of antithrombotics/antiplatelets; Z79.84 Long term (current) use of oral hypoglycemic drugs; Z87.891 Personal history of nicotine dependence; Z96.642 Presence of left artificial hip joint; Z80.9 Family history of malignant neoplasm, unspecified; E11.65 Type 2 diabetes mellitus with hyperglycemia
CPT/HCPCS: 85025; 85027; 86850; 86900; 86901; 88304; 88311

== ENCOUNTER → 2020-03-13 | Outpatient (CLI) | payer BC ==
[2020-03-13 08:24] LABS: African American GFR (CKD) >90 (>60 ml/min/1.73 sqM); Blood Urea Nitrogen 20 mg/dL (9-20); Non-African American GFR(CKD) >90 (>60 ml/min/1.73 sqM)
--- NOTE | 2020-03-13 10:18 | CT ---
EXAMINATION TYPE: CT angio neck DATE OF EXAM: 03/13/2020 COMPARISON: None HISTORY: 65-year-old male I65.29, occlusion and stenosis have internal carotid artery and history of prior left carotid endarterectomy. TECHNIQUE: Contiguous axial scanning of the neck performed with IV Contrast, patient injected with 70 mL of Isovue 370. Coronal/sagittal MIP reconstructions performed. 3-D reconstructions generated on a dedicated workstation. CT DLP: 576.4 mGycm Automated exposure control for dose reduction was used. FINDINGS: There is large caliber to the visualized left main pulmonary artery at 3.1 cm. Correlate for possible underlying pulmonary arterial hypertension. Mild atherosclerotic arch calcifications. Conventional arch vessel branching anatomy. Mild to moderat e, approximately 50% stenosis at the origin of the right subclavian artery. There Slightly dominant right vertebral artery. Both vertebral arteries appear patent throughout their cour se. Severe atherosclerotic calcifications and plaque at the right carotid bifurcation with a moderate, 50 -60% stenosis of the distal right common carotid artery and a severe, 80-90% focal stenosis at the ri ght ICA origin have a reference axial image 62. The remainder of the right internal carotid artery is patent. The right carotid bifurcation is located approximately 1.7 cm below the angle of the mandible. Left common and internal carotid arteries remain patent. IMPRESSION: 1. Extensive atherosclerotic change at the right carotid bifurcation with moderate, 50-60% stenosis d istal right common carotid artery and a severe, 80-90% focal stenosis at the right ICA origin. 2. Widely patent left carotid arteries. 3. Mild to moderate, approximately 50% stenosis at the origin of the right subclavian artery. 4. Slightly dominant right vertebral artery. 5. Large caliber to the visualized left main pulmonary artery at 3.1 cm. Correlate for possible under lying pulmonary arterial hypertension.
== END | disposition home or self-care (01) ==
LOC: RADCTMAIN 07:34
PROVIDERS: ATTEND Surgery
DX: I65.21 Occlusion and stenosis of right carotid artery (principal); E11.9 Type 2 diabetes mellitus without complications; I25.10 Atherosclerotic heart disease of native coronary artery without angina pectoris
CPT/HCPCS: 82565; 84520; 70498; 36415; Q9967

== ENCOUNTER → 2020-04-08 | Outpatient (CLI) | payer BC ==
--- NOTE | 2020-04-08 11:32 | FL ---
EXAMINATION TYPE: FL barium swallow w video DATE OF EXAM: 04/08/2020 CLINICAL HISTORY: 65-year-old male R13.10 Dysphagia. Planned carotid endarterectomy. Some occasional coughing and choking with liquids. TECHNIQUE: Deglutition study is performed utilizing thin liquid barium, honey and nectar thick liqui d barium, barium thick applesauce, and barium coated cracker. Total fluoroscopy time: 1 minute 15 seconds. Total images: None. Real-time fluoroscopy support was provided to speech pathology. COMPARISON: None. FINDINGS: Patient is edentulous. The oral and pharyngeal phases show satisfactory initiation and propagation with all modalities teste d. Normal mastication is seen with solid modalities tested. There is no evidence of penetration or aspiration with any modality tested. No significant pharyngeal residue was appreciated. IMPRESSION: Normal deglutition study. Please refer to speech therapist notes for further details if necessary.
== END | disposition home or self-care (01) ==
LOC: RADFLMAIN 10:56
PROVIDERS: ATTEND Otolaryngology
DX: R13.10 Dysphagia, unspecified (principal)
CPT/HCPCS: 74230

== ENCOUNTER → 2020-04-21 | Outpatient (CLI) | payer BC ==
[2020-04-21 17:02] LABS: HCT 42.2 % (39.0-53.0); HGB 16.4 gm/dL (13.0-17.5); MCH 33.8 pg (25.0-35.0); MCV 87.2 fL (80.0-100.0); Mean Platelet Volume 7.3; Platelet Count 188 k/uL (150-450); RBC 4.84 m/uL (4.30-5.90); RDW 12.8 % (11.5-15.5); WBC 9.1 k/uL (3.8-10.6)
[2020-04-21 17:08] LABS: MCHC 38.8 g/dL (31.0-37.0)
[2020-04-21 23:45] LABS: Non-African American GFR(CKD) 90.6 (60.0-200.0); Potassium 4.3 mmol/L (3.5-5.5)
== END | disposition home or self-care (01) ==
LOC: LABWHC1 16:14
PROVIDERS: ATTEND Surgery
DX: I65.21 Occlusion and stenosis of right carotid artery (principal)
CPT/HCPCS: 36415; 82565; 84132; 84520; 85027

== ENCOUNTER 2020-04-23 06:02 | Inpatient (IN) | payer BC ==
[2020-04-18 12:14] VITALS: BMI 33.0
[~2020-04-23 06:02] MED LIST: MIDAZOLAM 2 MG/2 ML VIAL IV PRN; ONDANSETRON 4 MG/2 ML VIAL IVP PRN; fentaNYL (PF) 50 MCG/ML 2 ML AMP IV PRN; fentaNYL (PF) 50 MCG/ML 2 ML AMP IVP PRN
[2020-04-23] MEDS ORDERED: ONDANSETRON 4 MG/2 ML VIAL ONE (06:39)
[2020-04-23] MEDS ORDERED: LIDOCAINE 1% (10MG/ML) FOR IV START INTRADERMA ONE (06:43)
[2020-04-23] MEDS: LACTATED RINGERS 1,000 ML IV SCH ×4 (06:45→23:12)
[2020-04-23 06:47] LABS: Glucose,Whole Blood 206 mg/dL (75-99)
[2020-04-23] MEDS ORDERED: LIDOCAINE 1% INJ 10MG/ML (10 ML MDV) SQ ONE (07:30)
[2020-04-23] MEDS ORDERED: GELATIN SPONGE,ABSORB (LARGE) 1 EACH SPONGE TOPICAL ONE (07:30)
[2020-04-23] MEDS ORDERED: HEPARIN SODIUM 1,000 UN/ML (10ML VL) IRRIGATION ONE (07:30)
[2020-04-23] MEDS ORDERED: THROMBIN (BOVINE) 5,000 UNIT VIAL TOPICAL ONE (07:30)
[2020-04-23] MEDS ORDERED: ceFAZolin 2 GM in SODIUM CHLORIDE 0.9% 500 ML 500 ML IRRIGATION ONE (08:09)
[2020-04-23] MEDS ORDERED: ACETAMINOPHEN TAB 325 MG TAB PO PRN (10:18)
[2020-04-23] MEDS ORDERED: HYDROcodone/APAP 5-325MG 1 EACH TAB PO PRN (10:18)
[2020-04-23] MEDS ORDERED: TRIMETHOBENZAMIDE 100 MG/ML 2 ML VIAL IM PRN (10:18)
[2020-04-23] MEDS ORDERED: BENZOCAINE/MENTHOL LOZENG 1 EACH LOZENGE MUCOUS MEM PRN (10:18)
[2020-04-23] MEDS ORDERED: MAG HYDROX/AL HYDROX/SIMETH 30 ML CUP PO PRN (10:18)
[2020-04-23] MEDS ORDERED: MORPHINE SULFATE 2 MG/ML SYRINGE IVP PRN (10:18)
[2020-04-23 10:53] LABS: Glucose,Whole Blood 229 mg/dL (75-99)
[2020-04-23] MEDS ORDERED: INSULIN ASPART (NovoLOG) 100 UNIT/ML VIAL SQ ONE (10:55)
[2020-04-23] MEDS ORDERED: ONDANSETRON 4 MG/2 ML VIAL IVP ONE (11:22)
[2020-04-23] MEDS: HYDROmorphone 0.5 MG/0.5 ML SYRINGE IVP PRN ×4 (11:24→13:49)
[2020-04-23 12:12] LABS: Glucose,Whole Blood 205 mg/dL (75-99)
[2020-04-23 16:55] LABS: Glucose,Whole Blood 179 mg/dL (75-99)
[2020-04-23] MEDS: HEPARIN SODIUM,PORCINE 5,000 UNIT/ML 1 ML VIAL SQ SCH ×2 (18:12→23:04)
[2020-04-23 22:09] LABS: Glucose,Whole Blood 258 mg/dL (75-99)
[2020-04-23] MEDS: INSULIN ASPART (NovoLOG) 100 UNIT/ML VIAL SQ SCH (23:04)
[2020-04-24 06:14] LABS: Glucose,Whole Blood 196 mg/dL (75-99)
[2020-04-24] MEDS: INSULIN ASPART (NovoLOG) 100 UNIT/ML VIAL SQ SCH (06:39)
[2020-04-24 08:38] VITALS: BP 134/63; PULSE 71; RESP 18; TEMP 98.8
[2020-04-24] MEDS: HEPARIN SODIUM,PORCINE 5,000 UNIT/ML 1 ML VIAL SQ SCH (08:47)
[2020-04-24] MEDS ORDERED: NEBIVOLOL 5 MG TAB PO SCH (09:00)
[2020-04-24] MEDS ORDERED: GLIMEPIRIDE 4 MG TAB PO SCH (09:00)
[2020-04-24] MEDS ORDERED: lisinopriL 20 MG TAB PO SCH (09:00)
[2020-04-24] MEDS ORDERED: ASPIRIN 81 MG PO SCH (09:00)
--- NOTE | 2020-04-24 10:33 | P.PN ---
Subjective Progress Note Date: 04/24/20 Principal diagnosis: Carotid stenosis s/p right carotid endarterectomy Patient seen and examined at bedside. He is doing well and had no issues overnight. He denies any fevers, chills, chest pain or shortness of breath. Objective - Vital Signs Vital signs: Vital Signs Temp 98.8 F 04/24/20 08:00 Pulse 71 04/24/20 08:00 Resp 18 04/24/20 08:00 BP 134/63 04/24/20 08:00 Pulse Ox 97 04/24/20 08:00 Intake & Output 04/23/20 04/24/20 04/24/20 18:59 06:59 18:59 Intake Total 601 240 Output Total 480 300 360 Balance 121 -300 -120 Weight 103.1 kg Intake: IV 601 Oral 240 Output: Drainage 60 Right Neck 60 Urine 440 300 300 Estimated Blood Loss 40 Other: Voiding Method Indwelling Catheter Toilet Toilet # Voids 1 1 - Exam Right neck incision is clean, dry and intact. No signs of hematoma. Drain is in place with minimal drainage. No focal deficits. Equal float builder strength. No tongue deviation. - Labs Labs: Abnormal Lab Results - Last 24 Hours (Table) 04/23/20 04/23/20 04/23/20 Range/Units 10:51 12:10 16:42 POC Glucose (mg/dL) 229 H 205 H 179 H (75-99) mg/dL 04/23/20 04/24/20 Range/Units 22:02 06:10 POC Glucose (mg/dL) 258 H 196 H (75-99) mg/dL Assessment and Plan Assessment: Postoperative day #1 right carotid endarterectomy with patch angioplasty Plan: Removed YESSENIA drain at bedside without competitions. Continue aspirin, statin. Okay for DC
--- NOTE | 2020-04-24 11:21 | P.OP ---
Description of Procedure: Date of Procedure: 04/23/2020 Preoperative Diagnosis: Right Internal carotid artery stenosis 80-99% Postoperative Diagnosis: Same Procedure(s) Performed: Right carotid endarterectomy with patch angioplasty Anesthesia: ANICETOA Surgeon: Nathan Engel Estimated Blood Loss (ml): 40 IV Fluids & Urine Output: See anesthesia record Pathology: Right carotid plaque Condition: stable Disposition: PACU Findings: High bifurcation with dense plaque greater than 95% stenosis with almost total occlusion at the bifurcation noted. Plaque was chalk like. Indications for Procedure: 65-year-old gentleman who previously underwent left carotid endarterectomy with patch angioplasty presented to the office for his post evaluation which determined on carotid Doppler and CT angiogram that he had right sided severe stenosis as well greater than 80-99%. He presents today for right carotid endarterectomy. Description of Procedure: After written informed consent was obtained the patient all risks benefits and competitions were described the patient is brought to the operative suite and laid in a supine position. The area of the neck was prepped and draped in usual sterile fashion after appropriate anesthetic was performed per the anesthesiologist. A timeout was performed in normal fashion antibiotics were administered prior to incision. An oblique incision was then created just anterior to the sternocleidomastoid musculature with a 10 blade scalpel and dissection was carried down to the carotid sheath. The carotid sheath was then entered after facial vein was located and suture ligated in normal fashion. The common carotid, internal carotid, external carotid and superior thyroid arteries were located and dissected free in a meticulous fashion circumferentially and controlled with vessel loops. Attention was then placed to locating the vagus nerve as well as hypoglossal nerve which were both spared. Once controlled patient was administered heparin and followed with ACTs for appropriate heparinization. Once ACT was above 200 the proximal and distal aspects of the dissection were then controlled with vascular clamps. Arteriotomy was then created with 11 blade scalpel and extended with Aldrich Toledo scissors. Utilizing pressure tubing stump pressures were obtained and were greater than 65. No shunt was required and endarterectomy was then performed with a [place] and elevator. The plaque was then feathered at the distal aspect and the internal carotid artery and removed. The area was copiously irrigated with heparinized saline and all free debris was removed. Multiple 7-0 Prolene sutures were then placed to tack the distal aspect of the dissection at the internal carotid artery. A 0.8 x 8 cm bovine pericardial patch was then chosen and patch angioplasty was performed with 6-0 Prolene suture in a running fashion. Prior to last sutures being placed the inflow was released flushing any free debris out of the patch. This was reclamped and the internal carotid artery was released revealing good brisk flow and was once again reclamped. The external carotid and superior thyroid artery were then released followed by the common carotid artery to allow any free debris to be flushed into the external system. Final sutures were placed and secured. Internal carotid artery control was then released. Good pulsatile flow was noted through the patch and a Doppler was utilized demonstrating good brisk flow into the internal, external carotid arteries without any signs of obstruction. Hemostasis was then assured with [place] and thrombin. A 10- [place] YESSENIA drain was then placed in normal fashion and secured with 3-0 nylon suture. The incision was then closed in a multilayer fashion after hemostasis was assured. The skin was then cleansed and dressings were placed. Patient tolerated the procedure well and was following commands and moving all extremities. Patient was then sent to PACU for recovery.
[2020-04-24] MEDS ORDERED: DULoxetine HCL 60 MG CAPSULE.DR PO SCH (17:30)
[2020-04-24] MEDS ORDERED: INSULIN DETEMIR (LEVEMIR) 100 UNIT/ML SYR SQ SCH (18:30)
[2020-04-24] MEDS ORDERED: ATORVASTATIN 40 MG TAB PO SCH (21:00)
== END 2020-04-24 11:31 | disposition home or self-care (01) | DRG 39 ==
LOC: 2ORMAIN 06:02 → EDSTATUS 07:30 → 3SCARD 15:40
PROVIDERS: ADMIT Surgery; ATTEND Surgery
PROC: 03UK0KZ Supplement Right Internal Carotid Artery with Nonautologous Tissue Substitute, Open Approach (ICD-10-PCS; 2020-04-23)
PROC: 03CK0ZZ Extirpation of Matter from Right Internal Carotid Artery, Open Approach (ICD-10-PCS; principal; 2020-04-23 07:30)
DX: I65.21 Occlusion and stenosis of right carotid artery (principal); E11.9 Type 2 diabetes mellitus without complications; F17.210 Nicotine dependence, cigarettes, uncomplicated; Z79.82 Long term (current) use of aspirin; Z79.84 Long term (current) use of oral hypoglycemic drugs; Z79.899 Other long term (current) drug therapy; Z96.642 Presence of left artificial hip joint; Z98.890 Other specified postprocedural states; Z82.3 Family history of stroke; Z80.9 Family history of malignant neoplasm, unspecified
CPT/HCPCS: 86850; 86900; 86901

== ENCOUNTER → 2024-06-07 | Outpatient (CLI) | payer MEDICARE | END | disposition home or self-care (01) | LOC: LABWHC1 11:24 | PROVIDERS: ATTEND Orthopaedic Surgery | DX: Z96.642 Presence of left artificial hip joint (principal) ==

== ENCOUNTER → 2024-06-12 | Outpatient (CLI) | payer MEDICARE ==
--- NOTE | 2024-06-12 14:04 | NM ---
EXAMINATION TYPE: NM bone 3 phase DATE OF EXAM: 06/12/2024 COMPARISON: 09/17/2015 CLINICAL INDICATION: Male, 69 years old with history of Z96.642 PRESENCE OF LEFT ARTIFICIAL HIP JOINT ; Triple phase bone scintigraphy was performed following the injection of 24 mCi Tc 99m MDP. Immediate images and 5.5 hours post injection images acquired. FINDINGS: There is uptake around the stem tip distally and near the base of the acetabular component. There is no significant abnormal accumulation of radiotracer to suggest metastatic disease to the cirilo ne or other significant abnormality. No evidence for uptake to suggest infection. IMPRESSION: Uptake around the left proximal and more distal femoral component concerning for loosening. [facility], , 06/12/2024 2:02 PM
== END | disposition home or self-care (01) ==
LOC: RADNMMAIN 07:18
PROVIDERS: ATTEND Orthopaedic Surgery
DX: E11.9 Type 2 diabetes mellitus without complications (principal); Z96.642 Presence of left artificial hip joint; T84.84XA Pain due to internal orthopedic prosthetic devices, implants and grafts, initial encounter
CPT/HCPCS: 78315; A9503